=== PATIENT | female | born 1955 | race Asian ===

== ENCOUNTER 2021-01-24 10:58 | Emergency (ER) | payer OTHER ==
[~2021-01-24] VITALS: Ht 157.5 cm; Wt 68.0 kg
--- NOTE | 2021-01-24 10:58 | NUR ---
PT BIB DAUGHTER SENT FROM URGENT CARE C/O HIGH BP 190/77 PER PT. PT IS AAOX4, NOT IN RESPIRATORY DISTRESS, HOOKED TO SPORTS ANALYST, KEPT RESTED AND COMFORTABLE. WILL CONTINUE TO MONITOR.
--- NOTE | 2021-01-24 11:19 | NUR ---
SEEN AND EXAMINED BY
[2021-01-24] MEDS ORDERED: AMLODIPINE BESYLATE 5 MG TABLET ONE (11:22)
[2021-01-24] MEDS: AMLODIPINE BESYLATE 5 MG TABLET PO ONE (11:39)
[2021-01-24 11:50] LABS: BASOPHILS % (AUTO) 0.4 % (0.0-2.0); HEMATOCRIT 45 % (33-45); HEMOGLOBIN 14.8 g/dL (11.5-14.8); LYMPHOCYTES # (AUTO) 2.1 /CMM (0.8-4.8); LYMPHOCYTES % (AUTO) 34.6 % (20.0-44.0); MEAN CORPUSCULAR HGB CONC 33 g/dl (31.0-36.0); MEAN CORPUSCULAR VOLUME 86 fL (82-100); MONOCYTES # (AUTO) 0.4 /CMM (0.1-1.30); MONOCYTES % (AUTO) 6.5 % (2.0-12.0); NEUTROPHILS # (AUTO) 3.4 /CMM (1.8-8.9); NEUTROPHILS % (AUTO) 56.5 % (43.0-81.0); PLATELET COUNT (AUTO) 341 /CMM (150-450); RED BLOOD CELL COUNT(AUTO) 5.27 MIL/uL (4.0-5.2)
[2021-01-24 12:06] LABS: CALCIUM, SERUM 8.8 mg/dL (8.5-10.1); CREATININE 0.8 mg/dL (0.6-1.3); POTASSIUM 3.5 mmol/L (3.5-5.1)
[2021-01-24 12:12] LABS: ALBUMIN 3.6 g/dL (3.4-5.0); BILIRUBIN,DIRECT 0.1 mg/dL (0.0-0.2); BILIRUBIN,TOTAL 0.3 mg/dL (0.2-1.0); TOTAL PROTEIN, SERUM 7.7 g/dL (6.4-8.2)
[2021-01-24] MEDS ORDERED: AMLO-212 PO (12:24)
[2021-01-24] MEDS ORDERED: MECL-159 PO (12:24)
--- NOTE | 2021-01-24 12:44 | NUR ---
Patient discharged to home in stable condition. Written and verbal after care instructions given. Patient verbalizes understanding of instruction.
[2021-01-24 12:45] VITALS: BP 178/83
== END 2021-01-24 12:45 | disposition home or self-care (01) ==
LOC: ER 11:05
DX: I10 Essential (primary) hypertension (principal); R42 Dizziness and giddiness; E78.5 Hyperlipidemia, unspecified
CPT/HCPCS: 36415; 80048-TC; 80076-TC; 85025-TC